=== PATIENT | male | born 1960 | race Caucasian/White ===

== ENCOUNTER → 2022-01-12 09:40 | Outpatient (CLI) | payer SELFPAY ==
[2022-01-12 19:08] LABS: Anion Gap 17.1 mEq/L (5-15); Blood Urea Nitrogen 33 mg/dl (9-20); Calcium 10.2 mg/dl (8.4-10.2); Carbon Dioxide 25 mmol/L (22.0-30.0); Chloride 104 mmol/L (98-107); Estimated Glomerular Filt Rate 68 ml/min (>60); GFR (African American) 82 ML/MIN (>60); Glucose 265 mg/dl (74-100); Potassium 5.1 mmoL/L (3.5-5.1); Sodium 141 mmol/L (136-145)
== END ==
PROVIDERS: PCP Nurse Practitioner; Visit Provider Nurse Practitioner
DX: I10 Essential (primary) hypertension (principal); E11.9 Type 2 diabetes mellitus without complications; Z79.84 Long term (current) use of oral hypoglycemic drugs
CPT/HCPCS: 80048